=== PATIENT | male | born 1990 | race African-American/Black ===

== ENCOUNTER 2025-02-16 09:51 | Emergency (ER) | payer OTHER, SELFPAY ==
--- NOTE | ~2025-02-16 | CT_ITS ---
CLINICAL HISTORY: upper abdominal pain Exam: Contrast-enhanced CT abdomen and pelvis with multiplanar reformats. Comparison: None. Findings: CT abdomen: Lung bases are clear. Liver is free of focal lesions and ductal dilatation. Gallbladder appears unremarkable. Spleen is unremarkable. Pancreas and adrenal glands appear unremarkable. Kidneys appear unremarkable. No free intraperitoneal fluid or retroperitoneal masses or adenopathy. Abdominal aorta is normal caliber. Bowel loops reveal no abnormal wall thickening or distention. The appendix is unremarkable. No diverticular disease. CT pelvis: Prostate gland measures 4.1 cm transverse dimension. Urinary bladder is free of gross filling defects. No pelvic masses, fluid or adenopathy. Osseous structures reveal no destructive osseous lesions. Impression: 1. No acute abnormality or CT explanation for reported history of upper abdominal pain. This document has been electronically signed by: Marlon Geiger MD on 02/16/2025 19:11:24
[2025-02-16 10:37] VITALS: BP 111/50; PULSE 68; RESP 16; TEMP 36.8; O2SAT 99; BMI 28.4
--- NOTE | 2025-02-16 10:40 | ED.GENADULT ---
HPI - General Adult General Chief complaint: Abdominal Pain Stated complaint: ABD Pain Time Seen by Provider: 02/16/25 16:46 Source: patient, RN notes reviewed, old records reviewed and interpreter for the deaf Mode of arrival: ambulatory Limitations: language barrier (swiss creole) History of Present Illness ED Provider: Watson HPI narrative: 34-year-old male presents for evaluation of upper abdominal pain for the last 4 days. His pain is worse after eating. He has diarrhea but denies nausea or vomiting. Denies any previous abdominal surgeries pain Denies any recent travel pain His pain is currently a 6/10 and described as achy. Denies any black or bloody stool. No other complaints or concerns at this time Related Data Allergies Allergy/AdvReac Type Severity Reaction Status Date / Time No Known Allergies Allergy Verified 02/16/25 10:41 Review of Systems Constitutional: Constitutional: Denies body ache(s), Denies chills, Denies fever(s), Denies frequent falls and Denies headache(s) Eyes: Eyes: Denies blurry vision ENT: Denies vertigo, Denies dizziness and Denies headache(s) Cardiovascular: Cardiovascular: Denies chest pain and Denies dyspnea on exertion Respiratory: Respiratory: Denies cough and Denies dyspnea on exertion Gastrointestinal: Gastrointestinal: Reports abdominal pain, Denies melena, Denies hematochezia, Reports diarrhea, Reports loose stools, Denies nausea and Denies vomiting Neurologic: Denies vertigo, Denies dizziness, Denies frequent falls and Denies headache(s) PMFSH Social History Social History Advance Directives: No Advance Directives Information Provided: No Do you have a plan to hurt others: No Plan Physical Exam ED Vital Signs: Vital Signs - 24 hr 02/16/25 10:37 02/16/25 17:55 02/16/25 19:17 Temperature 98.3 F 98.3 F 98.3 F Pulse Rate 68 54 81 Respiratory Rate 16 18 18 Blood Pressure 111/50 L 116/71 114/60 Pulse Oximetry 99 100 100 Oxygen Delivery Method Room Air Room Air Room Air BMI result Body Mass Index 28.4 Const General: healthy appearing, comfortable, no acute distress, alert and awake Nutritional Appearance: well nourished Orientation/consciousness: patient oriented x3 HENMT Head: Yes normocephalic and Yes atraumatic Eyes Eyelids: Yes eyelids normal Conjunctivae: conjunctivae normal Sclerae: sclerae normal Corneas: corneas normal Pupils: Equal, round and reactive pupils present EOM: EOMs intact bilaterally Neck Neck: Yes full ROM Resp Effort & Inspection: normal respiratory effort, able to speak in complete sentences, no audible wheezes and not labored GI Inspection: No distended Palpation (GI): Soft to palpation, not firm, Tenderness to palpation present (GI) in the epigastrum, in the LUQ and in the RUQ; not in the LLQ and not in the RLQ, no guarding and not rigid Skin General skin exam: elasticity normal Neuro General: patient oriented x3 Cranial nerves: Yes Equal, round and reactive pupils present and Yes Bilaterally intact EOM present Cognition (Neuro): normal cognition Extrem Other: Moving all extremities well without any obvious deformities Course Course Course Narrative: Rapid medical examination performed in triage by Lia Price PA-C: Patient is a 34 year old male presenting to the emergency department with abdominal pain. Patient states that over the last 3 days he has had abdominal pain that is not improving. Detailed physical exam and review of systems are deferred to the licensed funeral director and embalmer. Labs and swabs ordered. Patient placed back in the waiting room pending room availability and results. Medications Administered Discontinued Medications Generic Name Dose Route Start Last Admin Trade Name Freq PRN Reason Stop Dose Admin Lactated Ringer's 1,000 mls @ 999 mls/hr 02/16/25 17:15 02/16/25 19:02 Lr IV 02/16/25 18:15 Infused .[id number] HAYDER Infusion Iohexol 100 ml 02/16/25 18:13 02/16/25 18:15 Iohexol 350 Mg/Ml 100 Ml Infus..Btl IV 02/16/25 18:14 85 ml ONCE ONE Administration Ketorolac Tromethamine 15 mg 02/16/25 17:15 02/16/25 17:36 Ketorolac Tromethamine 15 Mg/Ml Vial IVPUSH 02/16/25 17:16 15 mg ONCE ONE Administration Ondansetron HCl 4 mg 02/16/25 17:15 02/16/25 17:37 Ondansetron Hcl 4 Mg/2 Ml Vial IVPUSH 02/16/25 17:16 4 mg ONCE ONE Administration Pantoprazole Sodium 40 mg 02/16/25 17:15 02/16/25 17:37 Pantoprazole Sodium 40 Mg/10 Ml Vial IVPUSH 02/16/25 17:16 40 mg ONCE ONE Administration Medical Decision Making Medical Decision Making [facility] Narrative: 34-year-old male presents for evaluation of abdominal pain that is worse after eating. His exam is quite reassuring, he has generalized tenderness but his abdomen is nondistended, in his soft and there was no rebound or guarding. Vital signs are stable, he does not have any leukocytosis. Denies any previous abdominal surgeries. Given that his pain is more generalized and not localized to the right upper quadrant I think cholelithiasis he is possible but not the most likely diagnosis. You may has been IBS or IBD versus a viral illness. Plan for CT scan of the abdomen pelvis to evaluate for surgical pathology Differential Diagnosis Differential Diagnoses: The differential diagnosis associated with the presentation includes Cholelithiasis Acute cholecystitis Gastritis GERD Constipation IBS IBD Lab Data [facility] Lab Attestation statement: I reviewed the patient's lab results. No leukocytosis or significant anemia. Normal platelet count. No electrolyte abnormalities warranting intervention. LFTs within normal limits. 02/16/25 11:04 02/16/25 11:04 Labs: Lab Results 02/16/25 Range/Units 11:04 WBC 6.2 (4.8-10.8) X10*3/uL RBC 6.21 H (4.60-5.80) X10*6/uL Hgb 13.9 L (14.0-18.0) g/dl Hct 43.9 (42.0-52.0) % MCV 70.7 L (80.0-98.0) fL MCH 22.4 L (27.0-33.0) pg MCHC 31.7 (31.0-36.0) g/dl RDW 13.4 (11.0-16.0) % Plt Count 198 (160-400) X10*3/uL MPV 9.9 (9.4-12.4) fL Immature Gran % (Auto) 0.5 H (0.0-0.4) % Neut % (Auto) 44.0 L (45-73) % Lymph % (Auto) 39.9 (20-40) % Bay % (Auto) 10.8 (2-11) % Eos % (Auto) 4.5 H (0-4) % Baso % (Auto) 0.3 (0-2) % Lymph # (Auto) 2.5 (1.2-4.9) X10*3/uL Bay # (Auto) 0.7 (0.1-1.2) X10*3/uL Eos # (Auto) 0.3 (0.0-0.4) X10*3/uL Baso # (Auto) 0.0 (0.0-0.2) X10*3/uL Abs Immat Gran (auto) 0.03 (0.00-0.03) X10*3/uL Absolute Neuts (auto) 2.7 (2.0-8.3) x10*3/uL Absolute Nucleated RBC 0.000 (0.0-0.012) X10*3/uL Nucleated RBC % (auto) 0.0 (0.0-0.2) /100WBC Smear Tech's Comments VERIFIED Sodium 140 (135-145) mmol/L Potassium 4.5 (3.3-5.1) mmol/L Chloride 109 H (96-108) mmol/L Carbon Dioxide 25 (22-29) mmol/L Anion Gap 11 L (12-20) BUN 15 (9-16) mg/dL Creatinine 1.01 (0.5-1.4) mg/dL Estim Creat Clear Calc 95.5 Estimated GFR > 60 Random Glucose 78 (60-115) mg/dL Calcium 9.2 (8.4-10.2) mg/dL Magnesium 2.0 (1.6-2.6) mg/dL Total Bilirubin 0.8 (0.0-1.0) mg/dL AST 27 (5-37) U/L ALT 27 (0-40) U/L Alkaline Phosphatase 101 (39-117) U/L Troponin I High Sens < 2.7 (<3.5-35.0) ng/L Total Protein 7.1 (6.5-8.0) g/dL Albumin 4.2 (3.5-5.0) g/dL Lipase 14 (8-78) U/L Influenza Type A (PCR) NEGATIVE (Negative) Influenza Type B (PCR) NEGATIVE (Negative) RSV RNA Qual (PCR) NEGATIVE (Negative) SARS-CoV-2 RNA (RT-PCR) NEGATIVE (Negative) Radiology Impression Discussion of test interpretation with radiology: I have reviewed the radiologist's reading. Radiologist Impression: Findings: CT abdomen: Lung bases are clear. Liver is free of focal lesions and ductal dilatation. Gallbladder appears unremarkable. Spleen is unremarkable. Pancreas and adrenal glands appear unremarkable. Kidneys appear unremarkable. No free intraperitoneal fluid or retroperitoneal masses or adenopathy. Abdominal aorta is normal caliber. Bowel loops reveal no abnormal wall thickening or distention. The appendix is unremarkable. No diverticular disease. CT pelvis: Prostate gland measures 4.1 cm transverse dimension. Urinary bladder is free of gross filling defects. No pelvic masses, fluid or adenopathy. Osseous structures reveal no destructive osseous lesions. Impression: 1. No acute abnormality or CT explanation for reported history of upper abdominal pain. This document has been electronically signed by: Marlon Geiger MD on 02/16/2025 19:11:24 Discharge Plan Discharge Clinical Impression: Abdominal pain Patient Disposition: Home, Self-Care Instructions: Acute Abdominal Pain (ED) Additional Instructions: Your workup in the ER today was reassuring. This includes your labs as well as your CT scan. We did not find any concerning abnormalities to explain your pain. Follow up with your primary doctor as well as GI. Colon or tomorrow to schedule an appointment Return for new or worsening symptoms Referrals: [facility] [place] [facility] [Provider Group, Gastroenterology] Referral Note: postprandial abdominal pain Print Language: Radha Headley
--- NOTE | 2025-02-16 10:41 | ECG_ITS ---
Test Reason : ABDOMINAL PAIN Blood Pressure : */* mmHG Vent. Rate : 54 BPM Atrial Rate : 54 BPM P-R Int : 164 ms QRS Dur : 96 ms QT Int : 380 ms P-R-T Axes : 63 61 54 degrees QTcB Int : 360 ms Sinus bradycardia Otherwise normal ECG No previous ECGs available Referred By: Lia Price Electronically Signed By: ELMER VARGAS
[2025-02-16 11:14] LABS: Hematocrit 43.9 % (42.0-52.0); Hemoglobin 13.9 g/dl (14.0-18.0); Imm Gran Abs Auto 0.03 X10*3/uL (0.00-0.03); Imm Gran Pct Auto 0.5 % (0.0-0.4); Lymphocytes Absolute Auto 2.5 X10*3/uL (1.2-4.9); MANUAL DIFF FLAG SCAN; Mean Corpuscular HGB Conc 31.7 g/dl (31.0-36.0); Mean Corpuscular Hemoglobin 22.4 pg (27.0-33.0); Mean Corpuscular Volume 70.7 fL (80.0-98.0); NRBC Abs Auto 0.000 X10*3/uL (0.0-0.012); NRBC Pct Auto 0.0 /100WBC (0.0-0.2); Platelet Count 198 X10*3/uL (160-400); Red Blood Count 6.21 X10*6/uL (4.60-5.80); SCAN SMEAR FLAG 1; White Blood Count 6.2 X10*3/uL (4.8-10.8)
[2025-02-16 11:39] LABS: Alanine Aminotransferase 27 U/L (0-40); Albumin Level 4.2 g/dL (3.5-5.0); Alkaline Phosphatase 101 U/L (39-117); Anion Gap 11 (12-20); Aspartate Amino Transferase 27 U/L (5-37); Blood Urea Nitrogen 15 mg/dL (9-16); Calcium 9.2 mg/dL (8.4-10.2); Carbon Dioxide 25 mmol/L (22-29); Chloride 109 mmol/L (96-108); Creatinine Clr Calc Pharmacy 95.5; Estimated Glomerular Filt Rate > 60; Lipase 14 U/L (8-78); Magnesium 2.0 mg/dL (1.6-2.6); Potassium 4.5 mmol/L (3.3-5.1); Sodium 140 mmol/L (135-145); Total Protein 7.1 g/dL (6.5-8.0); Troponin-I High Sensitivity < 2.7 ng/L (<3.5-35.0)
[2025-02-16 11:51] LABS: Resp Syncy Virus RNA Qual PCR NEGATIVE (Negative); SARS COV2 PCR INHOUSE NEGATIVE (Negative)
[2025-02-16] MEDS: Lactated Ringers 1,000 ML 999 ML IV (17:36)
[2025-02-16 17:55] VITALS: BP 116/71; PULSE 54; RESP 18; TEMP 36.8; O2SAT 100
[2025-02-16] MEDS: iohexoL 350 MG/ML 100 ML INFUS..BTL IV (18:15)
[2025-02-16 19:17] VITALS: BP 114/60; PULSE 81; RESP 18; TEMP 36.8; O2SAT 100
[2025-02-16 19:38] VITALS: BP 114/60; PULSE 81; RESP 18; TEMP 36.8; O2SAT 100
== END 2025-02-16 19:38 | disposition home or self-care (01) ==
PROVIDERS: Physician Assistant Medical; Emergency Provider Emergency Medicine
DX: R10.23 Pelvic and perineal pain bilateral (principal); R10.13 Epigastric pain; R10.816 Epigastric abdominal tenderness; Z03.818 Encounter for observation for suspected exposure to other biological agents ruled out; Z79.899 Other long term (current) drug therapy
CPT/HCPCS: 36415; 74177; 80053; 83690; 83735; 84484; 85025; 87637; 93005; 96365; 96375; 99284; J1885; J2405; J2470; J7120; Q9967

== ENCOUNTER → 2025-02-16 10:41 | Outpatient (BNV) | payer OTHER, SELFPAY | PROVIDERS: Emergency Provider Emergency Medicine; Visit Provider Internal Medicine | DX: R00.1 Bradycardia, unspecified (principal) | CPT/HCPCS: 93010 ==

== ENCOUNTER → 2025-02-16 17:15 | Outpatient (BNV) | payer OTHER, SELFPAY | PROVIDERS: Emergency Provider Emergency Medicine; Visit Provider Radiology Diagnostic Radiology | DX: R10.10 Upper abdominal pain, unspecified (principal) | CPT/HCPCS: 74177 ==